=== PATIENT | male | born 1945 | race Caucasian/White ===

== ENCOUNTER 2017-06-15 12:24 | Emergency (ER) | payer MEDICARE ==
[~2017-06-15] VITALS: Ht 165.1 cm; Wt 68.0 kg
[2017-06-15 13:22] VITALS: BP 143/84
== END 2017-06-15 13:34 | disposition home or self-care (01) ==
LOC: EMS 12:33
DX: S20.212A Contusion of left front wall of thorax, initial encounter (principal); E78.00 Pure hypercholesterolemia, unspecified; I10 Essential (primary) hypertension; V43.52XA Car driver injured in collision with other type car in traffic accident, initial encounter; Y93.89 Activity, other specified; Y92.488 Other paved roadways as the place of occurrence of the external cause; Y99.8 Other external cause status
CPT/HCPCS: 99282

== ENCOUNTER 2018-06-21 12:39 | Emergency (ER) | payer MEDICARE ==
[~2018-06-21] VITALS: Ht 167.6 cm; Wt 68.2 kg
[2018-06-21 15:25] LABS: BASOPHILS % (AUTO) 0.4 % (0.0-2.0); EOSINOPHILS % (AUTO) 0.5 % (1.0-6.0); HEMATOCRIT 45.5 % (41-53); HEMOGLOBIN 15.3 g/dL (13.5-17.5); LYMPHOCYTES # (AUTO) 2.1 K/uL (1.0-4.8); LYMPHOCYTES % (AUTO) 29.1 % (22.0-44.0); MEAN CORPUSCULAR HEMOGLOBIN 33.2 pg (26.0-34.0); MEAN CORPUSCULAR HGB CONC 33.6 G/dL (31.0-37.0); MEAN CORPUSCULAR VOLUME 99 fL (80-100); MONOCYTES # (AUTO) 0.6 K/uL (0.1-1.0); MONOCYTES % (AUTO) 8.7 % (2.0-9.0); NEUTROPHILS # (AUTO) 4.4 K/uL (1.8-7.7); NEUTROPHILS % (AUTO) 61.3 % (40.0-70.0); PLATELET COUNT (AUTO) 140 K/uL (150-450); RED CELL DISTRIBUTION WIDTH 13.6 % (11.5-14.5)
[2018-06-21 15:35] LABS: ANION GAP 8 mmol/L (8-16); CALCIUM, TOTAL 9.3 mg/dL (8.8-10.5); CARBON DIOXIDE 31 mmol/L (22-29); CHLORIDE 101 mmol/L (98-107); CREATININE 1.08 mg/dL (0.60-1.30); GLUCOSE,RANDOM 93 mg/dL (70-110); SODIUM SERUM 140 mmol/L (136-145); UREA NITROGEN, BLOOD 14 mg/dL (7-18)
[2018-06-21 15:36] LABS: GLOMERULAR FILTR. RATE CALC > 60 mL/min (>60)
[2018-06-21 15:58] LABS: B-TYPE NATRIURETIC PEPTIDE 93 pg/mL (0-100)
[2018-06-21 16:02] LABS: ALANINE AMINOTRANSFERASE 28 U/L (12-78); ALBUMIN 3.6 g/dL (3.4-5.0); ALKALINE PHOSPHATASE 61 U/L (46-116); ASPARTATE AMINOTRANSFERASE 33 U/L (15-37); CREATINE KINASE MB 2.1 ng/mL (0-5); CREATINE KINASE, TOTAL 178 U/L (39-308); TOTAL PROTEIN, SERUM 7.7 g/dL (6.4-8.2)
[2018-06-21 16:17] LABS: PLATELET MORPHOLOGY COMMENT NORMAL
[2018-06-21 16:26] VITALS: BP 141/68
== END 2018-06-21 16:29 | disposition home or self-care (01) ==
LOC: EMS 12:40
DX: I10 Essential (primary) hypertension (principal); R00.1 Bradycardia, unspecified; E78.00 Pure hypercholesterolemia, unspecified
CPT/HCPCS: 93005; 99285